=== PATIENT | female | born 1970 ===

== ENCOUNTER 2023-05-07 12:44 | Outpatient (CLI) | payer BC ==
--- NOTE | 2023-05-07 21:53 | Ultrasound Report ---
PROCEDURE: Pelvic w/Transvaginal INDICATIONS: PELVIC PAIN TECHNIQUE: Real-time scanning was performed of the pelvic organs, with image documentation. Additional endovagi nal scanning was necessary due to incomplete visualization of the adnexal and endometrial structures by transabdominal scanning. COMPARISON: None. FINDINGS: Uterus: Uterus is anteverted and normal in size at 7.2 x 3.5 x 4.7 cm. The myometrium is mildly het erogeneous but without dominant mass.. The endometrium measures 3 mm in combined thickness. Normal myometrial and endometrial vascularity. There is a trace amount of fluid in the endocervix. A few sma ll nabothian cysts are seen. Ovaries: The right ovary measures 1.9 x 1.7 x 2.1 cm, with a calculated ovarian volume of 3.6 cc. T he left ovary measures 1.2 x 1.5 x 1.2 cm, with a calculated ovarian volume of 1.2 cc. The ovaries h ave a normal sonographic appearance. There is a dominant follicle associated with the right ovary me asuring 1.3 cm. No adnexal masses are seen. No cystic lesions measuring greater than 3 cm. Other: No pathologic free abdominal or pelvic fluid. Patient's area of discomfort in the right lower quadrant is diffusely shadowed by bowel gas. IMPRESSION: 1. Age-appropriate uterus and ovaries. 2. The right lower quadrant is predominately shadowed by bowel gas and is not well evaluated by ultra sound. If further imaging is required, cross-sectional imaging with CT or MRI is recommended. Reviewed by: Marialuisa Mojica MD on 05/07/2023 9:51 PM PDT Approved by: Marialuisa Mojica MD on 05/07/2023 9:51 PM PDT Station ID: [id number]
== END 2023-05-07 12:45 | disposition home or self-care (01) ==
LOC: DI 12:44
PROVIDERS: ATTEND Internal Medicine
DX: R10.2 Pelvic and perineal pain (principal); N94.6 Dysmenorrhea, unspecified; H69.90 Unspecified Eustachian tube disorder, unspecified ear

== ENCOUNTER 2023-05-07 12:46 | Outpatient (CLI) | payer BC ==
--- NOTE | 2023-05-10 11:24 | Mammography Report ---
BILATERAL DIGITAL SCREENING MAMMOGRAM 3D/2D WITH EXAGGERATED CC: 05/07/2023 CLINICAL: Routine screening. Baseline exam. No prior exams were available for comparison. Both breasts are heterogeneously dense, which may obscure small masses (category c / 51-75% glandular tissue). No significant masses, calcifications, or other findings are seen in either breast. IMPRESSION: NEGATIVE There is no mammographic evidence of malignancy. A 1 year screening mammogram is recommended. Based on the Tyrer Cuzick model (a risk assessment model) the patients lifetime risk is 19.2% and he r 10 year risk is 5.4%. According to the ACR, ACS, and NCCN guidelines, an annual breast MRI exam pratibha ng with mammogram is recommended if the patients lifetime risk is 20% or greater. This exam was interpreted at Station ID: [id number]. NOTE: For mammograms, a report in lay terms will be sent to the patient. Approximately 15% of breast malignancies will not be visualized mammographically. In the management of a palpable breast mass, a negative mammogram must not discourage biopsy of a clinically suspicious lesion. Electronically Signed By: Eric bernal/dian:05/07/2023 17:54:20 letter sent: No_Letter ACR BI-RADS Category 1: Negative 3341F PARENCHYMAL PATTERN: (D) - The breast(s) demonstrate(s) heterogeneously dense fibroglandular pardick hernandez. BI-RADS CATEGORY: (1) - 1 Mammogram [id number] 1 year screening LATERALITY: (B)
== END 2023-05-07 12:47 | disposition home or self-care (01) ==
LOC: DI 12:46
PROVIDERS: ATTEND Internal Medicine
DX: Z12.31 Encounter for screening mammogram for malignant neoplasm of breast (principal)